=== PATIENT | female | born 2000 | race Caucasian/White ===

== ENCOUNTER 2023-02-14 20:14 | Emergency (ER) | payer BC ==
[2023-02-14] MEDS ORDERED: Ibuprofen 200 MG TAB ONE (21:46)
[2023-02-14 22:24] LABS: MONO NEGATIVE CONTROL ZONE White (Negative) (White); MONO POSITIVE CONTROL Pink Line (Positive) (PINK/RED); Mononucleosis NEGATIVE (NEGATIVE)
[2023-02-14 22:25] LABS: Bacteria/HPF None Seen HPF (None Seen); Bilirubin Negative (Negative); Blood, Urine Negative (Negative); CAUTI Indications for Culture Dysuria,urgency,freq; Clarity Clear (Clear); Glucose, Urine (Dipstick) Normal (Negative); Ketone, Urine Negative (Negative); Leukocyte Negative Leu/uL (Negative); Nitrite Negative (Negative); Protein, Urine (Dipstick) Negative (Neg-Trace); RBC/HPF 0-3 HPF (0-3); Specific Gravity, Urine 1.007 (1.002-1.036); Squamous Epithelial 0-3 HPF (0-3); Urobilinogen Normal mg/dL (Less than 2); WBC/HPF 0-3 HPF (0-3)
[2023-02-14 22:27] LABS: Urine Culture Reflex No No
== END 2023-02-14 23:00 | disposition home or self-care (01) ==
LOC: ERS 20:14
DX: J02.9 Acute pharyngitis, unspecified (principal); K21.9 Gastro-esophageal reflux disease without esophagitis; F17.290 Nicotine dependence, other tobacco product, uncomplicated
CPT/HCPCS: 36415; 81001; 86308; 87081; 87430; 99283

== ENCOUNTER → 2024-04-03 | Day surgery (SDC) | payer BC ==
[~2024-04-03] MED LIST: Benzocaine 20% Spray 60 ML CAN ONE
== END ==
LOC: SDC 12:45
PROVIDERS: ATTEND Internal Medicine Gastroenterology
PROC: 4A1B7BZ Monitoring of Gastrointestinal Pressure, Via Natural or Artificial Opening (ICD-10-PCS; principal; 2024-04-03)
DX: K21.9 Gastro-esophageal reflux disease without esophagitis (principal); F41.9 Anxiety disorder, unspecified; J45.909 Unspecified asthma, uncomplicated; E78.00 Pure hypercholesterolemia, unspecified; Z79.899 Other long term (current) drug therapy; Z98.890 Other specified postprocedural states; Z91.040 Latex allergy status
CPT/HCPCS: 91010; 91034